=== PATIENT | female | born 1975 | race African-American/Black ===

== ENCOUNTER 2021-01-09 07:54 | Day surgery (SDC) | payer OTHER ==
[2021-01-09 08:16] LABS: Absolute Lymphocytes (CBC) 1.7 K/uL (0.7-4.9); Basophils % 0.8 % (0-1.3); Hematocrit 32.6 % (36.0-45.0); Lymphocytes % 29.3 % (15.3-44.8); MPV 8.1 fL (7.6-11.3); RBC Red Blood Cell Count 3.96 M/uL (3.86-4.86)
[2021-01-09 08:22] LABS: Urine Appearance CLEAR; Urine Color YELLOW
[2021-01-09 08:23] LABS: Urine Bilirubin NEGATIVE (NEG); Urine Blood NEGATIVE (NEG); Urine Glucose NEGATIVE (NEG); Urine Protein NEGATIVE (NEG); Urine Urobilinogen 0.2 mg/dL (0.2-1.0); Urine pH 6.5 (5.0-7.0)
[2021-01-09 08:24] LABS: Urine Microscopic Reflex NO UMIC
[2021-01-09] MEDS ORDERED: CEFAZOLIN/SWI 1gm 1 GM/10 ML SYR ONE (08:43)
[2021-01-09] MEDS ORDERED: NA CHLORIDE 0.9% 1,000 ML ONE ×3 (08:43→14:25)
[2021-01-09] MEDS ORDERED: SCOPOLAMINE HYDROBROMIDE PATCH TD ONE (08:43)
[2021-01-09] MEDS ORDERED: CEFAZOLIN SODIUM 1 GM/VIAL ONE (08:54)
[2021-01-09] MEDS ORDERED: GENTAMICIN SULF 80 MG/2ML INJ ONE (08:54)
[2021-01-09] MEDS ORDERED: LIDOCAINE 1% W/EPI 1:100,000 MDV 20 ML VIAL ONE (08:54)
[2021-01-09] MEDS ORDERED: NS 0.9% VIAL 40 ML ONE (08:54)
[2021-01-09] MEDS ORDERED: BACITRACIN 50000 UNIT VIAL ONE (08:55)
[2021-01-09] MEDS ORDERED: Mastisol Adhesive Liq ONE ×2 (08:55→14:54)
[2021-01-09] MEDS ORDERED: LIDOCAINE 2% MPF 5 ML VIAL ONE (10:09)
[2021-01-09] MEDS ORDERED: FENTANYL CITR 100 MCG/2 ML ONE ×2 (10:09→10:55)
[2021-01-09] MEDS ORDERED: propofoL 200 MG/20 ML VIAL IV ONE (10:09)
[2021-01-09] MEDS ORDERED: ROCURONIUM 50 MG/5 ML VIAL IV ONE (10:09)
[2021-01-09] MEDS ORDERED: MIDAZOLAM HCL 2 MG/2 ML INJ ONE (10:09)
[2021-01-09] MEDS ORDERED: dexAMETHasone 10 MG/ML VIAL ONE (10:15)
[2021-01-09] MEDS ORDERED: KETOROLAC 30 MG/ML INJ ONE ×2 (10:15→15:54)
[2021-01-09] MEDS ORDERED: ONDANSETRON 4 MG/2 ML VIAL ONE ×2 (10:45→18:15)
[2021-01-09] MEDS ORDERED: NS 0.9% VIAL 10 ML ONE ×3 (11:23→14:47)
[2021-01-09] MEDS ORDERED: VECURONIUM 10 MG/VIAL IV ONE (11:23)
[2021-01-09] MEDS ORDERED: Phenylephrine HCl 10 MG/ML 1 ML VIAL ONE (14:12)
[2021-01-09] MEDS ORDERED: MORPHINE 10 MG/ML VIAL ONE (14:47)
[2021-01-09] MEDS ORDERED: GLYCOPYRROLATE 0.2 MG/ML SYR ONE (14:59)
[2021-01-09] MEDS ORDERED: NEOSTIGMINE 1 MG/ML -5 ML ONE (15:00)
[2021-01-09] MEDS ORDERED: PROMETHAZINE INJ 25 MG/ML AMP ONE (15:37)
[2021-01-09 15:42] VITALS: O2SAT 100
[2021-01-09] MEDS ORDERED: CODEINE 30MG/APAP 300MG TAB ONE (17:08)
--- NOTE | 2021-01-09 18:37 | OP ---
Surgeon: Connor Molina MD Preoperative Diagnosis: Breast enlargement and descent. Postoperative Diagnosis: Breast enlargement and descent. Procedure Performed: Breast reduction. Anesthesia: General. Procedure In Detail: After the satisfactory induction of general anesthesia, chest was prepped with DuraPrep and dry sterile drapes applied in the usual manner. A 5 cm template was used to outline the right and left areolas. The transverse curvilinear incision was made with scalpel. Dissection was proceeded down transversely with electrocautery. Flap was thinned to approximately 1.5 cm. This was done after the wound was debrided. The flap was elevated towards the sternum, clavicle, and anterior axillary line. Then, the inferior incision was made and then the excess tissue was formed into a cone, sewn with a 2-0 PDS suture. Then, the straps were elevated at 12 o'clock, 1:30 and 3 o'clock positions. The straps were then woven in and out of the pectoralis major muscle back to the base of cone, tied themselves with 2-0 PDS sutures. This was done for 12 o'clock, 1:30 straps. The 3 o'clock strap was sewn over the sternum at 3 o'clock position with 2-0 Ethibond. Wounds were carefully stapled shut. The opposite side was done in mirror-image manner. We then returned to the right side and marked out the lateral dog ear. She has lost 110 pounds. Had extensive excess skin. Electrocautery was used for hemostasis and then 10 [place] brought out of the axilla. Then, the wound was closed with 3-0 Vicryl subcu and 3-0 PDS running subcuticular from medial to lateral and lateral to medial, tied in the vertical meridian of the breast. After this was done, left side was done in the identical manner. Then, the patient was sat up. Site for new nipple- areolar complex was marked out. Tissue was cored out with 5 cm template, nipple-areolar complex delivered and then sewn with interrupted 4-0 PDS followed by 4-0 PDS running subcuticular. Dressings of tincture of benzoin, Steri-Strips followed by Esmarch, fluffs, and Abhishek wrap. The patient tolerated the procedure well and returned to recovery room. Amount of blood loss was 500 cc. Tissue removed was 110 g on the right and 160 g on the left. The right breast lateral tissue 372, left breast lateral tissue 326. ZA/MODElver Voice ID: [id number] Report ID: [id number]
[2021-01-09 18:42] VITALS: TEMP 96.8
[2021-01-09] MEDS ORDERED: NA CHLORIDE 0.9% 500 ML ONE (18:43)
[2021-01-09 19:01] VITALS: BP 120/73
== END 2021-01-09 18:56 | disposition home health service (06) ==
LOC: OR 07:54
PROVIDERS: ATTEND Specialist
PROC: 0HSV0ZZ Reposition Bilateral Breast, Open Approach (ICD-10-PCS; principal; 2021-01-09 09:00)
DX: N64.81 Ptosis of breast (principal); Z20.822 Contact with and (suspected) exposure to COVID-19
CPT/HCPCS: 85025; 36415; 81025; 82947 ×2; 88305; 81003; 19316; J2704; J2550; J2370; J1580; J2250; J3010 ×2; J1100; J2710; J0690 ×2; J7040; J7030 ×3; J2405 ×2; J2800